=== PATIENT | female | born 1935 | race Caucasian/White ===

== ENCOUNTER → 2018-05-10 | Outpatient (CLI) | payer MEDICARE, OTHER ==
[~2018-05-10] MED LIST: REGADENOSON 0.4 MG/5 ML DISP.SYRIN. IV ONE
--- NOTE | 2018-05-10 09:06 | PCVCIMAG ---
APPROVED REPORT Study performed: 05/10/2018 08:02:08 EXAM: Comprehensive 2D, Doppler, and color-flow Echocardiogram Patient Location: Echo lab Status: routine BSA: 1.84 HR: 79 bpmBP: 140/90 mmHg Rhythm: NSR Other Information Study Quality: Good Risk Factors: Cardiac Risk Factors: HTN, Hyperlipidemia Indications Dyspnea Elevated calcium score 2D Dimensions IVSd: 12.66 (7-11mm)LVOT Diam: 17.13 (18-24mm) LVDd: 43.33 mm PWd: 11.81 (7-11mm)Ascending Ao: 35.27 (22-36mm) LVDs: 27.66 (25-40mm) Left Atrium: 32.55 (27-40mm) Aortic Root: 32.29 mm LV Single Plane 4CH: 62.17 % LV Single Plane 2CH: 57.36 % Biplane EF: 61.4 % Volumes Left Atrial Volume (Systole) Single Plane 4CH: 40.32 mLSingle Plane 2CH: 44.96 mL LA ESV Index: 24.00 mL/m2 Aortic Valve AoV Peak Eliseo.: 1.45 m/s AO Peak Gr.: 8.45 mmHgLVOT Max P.36 mmHg LVOT Max V: 1.16 m/s SALOMON Vmax: 1.84 cm2 Mitral Valve E/A Ratio: 0.7 MV Decel. Time: 278.41 ms MV E Max Eliseo.: 0.79 m/s MV A Eliseo.: 1.21 m/s IVRT: 93.43 ms TDI E/Lateral E': 19.75E/Medial E': 15.80 Medial E' Eliseo.: 0.05 m/s Lateral E' Eliseo.: 0.04 m/s Pulmonary Valve PV Peak Gr.: 2.85 mmHg Pulmonary Vein P Vein S: 0.60 m/sP Vein A: 0.33 m/s P Vein D: 0.37 m/sP Vein A Dur.: 65.7 msec P Vein S/D Ratio: 1.62 Tricuspid Valve TR Peak Eliseo.: 2.42 m/s TR Peak Gr.: 23.35 mmHg Left Ventricle The left ventricle is normal size. There is normal LV segmental wall motion. Borderline concentric left ventricular hypertrophy. Left ventricular systolic function is normal. The left ventricular ejection fraction is within the normal range. LVEF is 60-65%. Grade I - abnormal relaxation pattern. Right Ventricle The right ventricle is normal size. The right ventricular systolic function is normal. Atria The left atrium size is normal. The right atrium size is normal. Aortic Valve The aortic valve is normal in structure. No aortic regurgitation is present. There is no aortic valvular stenosis. Mitral Valve The mitral valve is normal in structure. Trace to mild mitral regurgitation. No evidence of mitral valve stenosis. Tricuspid Valve The tricuspid valve is normal in structure. Trace to mild tricuspid regurgitation. Pulmonary artery pressure is 31mmHg. Pulmonic Valve The pulmonary valve is normal in structure. There is no pulmonic valvular regurgitation. Great Vessels The aortic root is normal in size. IVC is normal in size and collapses >50% with inspiration. Pericardium There is no pericardial effusion. <Conclusion> The left ventricle is normal size. LVEF is 60-65%. The aortic valve is normal in structure. The mitral valve is normal in structure. Trace to mild mitral regurgitation. The tricuspid valve is normal in structure. Trace to mild tricuspid regurgitation. Pulmonary artery pressure is 31mmHg. The pulmonary valve is normal in structure. There is no pulmonic valvular regurgitation. There is no pericardial effusion.
== END | disposition home or self-care (01) ==
LOC: PCVCIMAG 07:51
PROVIDERS: ATTEND Internal Medicine
DX: I10 Essential (primary) hypertension (principal); R06.02 Shortness of breath; R93.1 Abnormal findings on diagnostic imaging of heart and coronary circulation; R06.09 Other forms of dyspnea
CPT/HCPCS: 78452; 93017; 93306; A9500; J2785